=== PATIENT | female | born 1975 | race Caucasian/White ===

== ENCOUNTER 2019-07-25 16:00 | Emergency (ER) | payer BC, OTHER ==
[2019-07-25 16:10] VITALS: BP 159/88; PULSE 87; TEMP 98.9; BMI 29.7
--- NOTE | 2019-07-25 16:10 | PDOC ---
Rapid Medical Evaluation Time Seen by Provider: 07/25/19 16:09 Medical Evaluation: Allergies Allergy/AdvReac Type Severity Reaction Status Date / Time codeine Allergy Intermediate Vomiting Verified 08/02/16 08:00 metoclopramide HCl Allergy Intermediate Rash Verified 08/02/16 08:00 [From Reglan] tramadol Allergy Intermediate Vomiting Verified 08/02/16 08:00 07/25/19 16:10 I have performed a brief in-person evaluation of this patient. The patient presents with a chief complaint of: abd pain Pertinent physical exam findings:stable and in NAD, non-focal I have ordered the following:labs The patient will proceed to the ED for further evaluation.
--- NOTE | 2019-07-25 16:38 | PDOC ---
*Physical Exam - Vital Signs Last Vital Signs Temp Pulse Resp BP Pulse Ox 98.9 F 87 18 159/88 97 07/25/19 16:08 07/25/19 16:08 07/25/19 16:08 07/25/19 16:08 07/25/19 16:08 ED Treatment Course - LABORATORY CBC & Chemistry Diagram: 07/25/19 16:32 07/25/19 16:32 - ADDITIONAL ORDERS Additional order review: Laboratory Results 07/25/19 16:32 Lipase Cancelled Medical Decision Making - Medical Decision Making 07/25/19 16:38 43 yo F presenting with RLQ pain, loose stools, nausea H/o hysterectomy Pt seen by Midlevel Provider under my direct supervision Pt interviewed and examined Ancillary studies reviewed Laboratory Tests 07/25/19 07/25/19 07/25/19 16:32 16:32 16:32 WBC 12.0 H Hgb 13.5 Hct 40.8 Plt Count 332 D BUN 10.4 Creatinine 1.0 Urine HCG, Qual Negative CT demonstrates no appendicitis I agree with plan as outlined by Midlevel Provider 07/25/19 17:04 07/25/19 17:05 Pt signed out pending US to further evaluate right ovary/ovarian cyst Discharge - Discharge Information Problems reviewed: Yes Clinical Impression/Diagnosis: Right ovarian cyst Condition: Stable Disposition: HOME - Follow up/Referral Referrals: ON STAFF,NOT [Primary Care Provider] - - Patient Discharge Instructions Patient Printed Discharge Instructions: DI for Ovarian Cyst Additional Instructions: Thank you for choosing [facility]. It was a pleasure taking care of you. Your lab work was unremarkable Your CT scan showed no evidence of appendicitis Your pelvic ultrasound showed that you had a 3.5x3.5 and 2x1.5 cm cyst in your right ovary You will need to follow-up with your TEXTILE ENGINEER in 3 months for further evaluation You may take Motrin 600 mg every 6 hours as needed for pain. Take with food Return to the Emergency Department if your symptoms worsen or persist, you have fever, shortness of breath, chest pain, severe abdominal pain, vomiting or other concerning symptoms. - Post Discharge Activity
[2019-07-25] MEDS ORDERED: SODIUM CHLORIDE 1,000 ML IV STA (16:40)
[2019-07-25] MEDS ORDERED: morphine CARPU-JECT 4 MG/1 ML DISP.SYRIN IVPUSH ONE (16:40)
[2019-07-25] MEDS ORDERED: ONDANSETRON 4 MG/2 ML VIAL IVPUSH ONE (16:40)
[2019-07-25 16:43] LABS: BASO % 0.9 % (0-2.0); HEMATOCRIT 40.8 % (32.4-45.2); HEMOGLOBIN 13.5 GM/dL (10.7-15.3); LYMPH % 10.5 % (8-40); MCH 31.3 pg (25.7-33.7); MCHC 33.1 g/dl (32.0-36.0); MEAN CELL VOLUME 94.4 fl (80-96); MONO % 6.3 % (3.8-10.2); NEUT % 81.3 % (42.8-82.8); PLATELET COUNT 332 K/MM3 (134-434); RBC 4.32 M/mm3 (3.60-5.2); RDW 13.7 % (11.6-15.6)
[2019-07-25] MEDS ORDERED: LACTATED RINGERS SOLUTION 1000 ML INFUS.BAG IV ONE (16:45)
[2019-07-25] MEDS ORDERED: ONDANSETRON 4 MG/2 ML VIAL ONE (16:45)
[2019-07-25] MEDS ORDERED: morphine SULFATE 4 MG/ML VIAL ONE (16:45)
[2019-07-25 17:04] LABS: BILIRUBIN,TOTAL 0.3 mg/dL (0.2-1); BLOOD UREA NITROGEN 10.4 mg/dL (7-18); CALCIUM 9.8 mg/dL (8.5-10.1); POTASSIUM 4.8 mmol/L (3.5-5.1); TOT PROT 7.3 g/dl (6.4-8.2)
[2019-07-25 17:08] LABS: URINE APPEARANCE CLEAR; URINE BILIRUBIN NEGATIVE (NEGATIVE); URINE COLOR DK YELLOW; URINE GLUCOSE (UA) NEGATIVE (NEGATIVE); URINE KETONE TRACE (NEGATIVE); URINE LEUK ESTERASE NEGATIVE (NEGATIVE); URINE NITRITE NEGATIVE (NEGATIVE); URINE PROTEIN TRACE (NEGATIVE)
--- NOTE | 2019-07-25 17:22 | PDOC ---
History of Present Illness - General Chief Complaint: Pain Stated Complaint: ABD PAIN Time Seen by Provider: 07/25/19 16:09 History Source: Patient Exam Limitations: No Limitations Past History - Past Medical History Allergies/Adverse Reactions: Allergies Allergy/AdvReac Type Severity Reaction Status Date / Time metoclopramide HCl Allergy Intermediate Rash Verified 07/25/19 16:12 [From Reglan] mayonnaise Allergy Verified 07/25/19 16:12 Home Medications: Ambulatory Orders Duloxetine [Cymbalta -] 60 mg PO DAILY 02/25/12 Cyclobenzaprine HCl [Flexeril -] 10 mg PO PRN 07/30/16 Oxycodone HCl/Acetaminophen [Percocet 5-325 mg Tablet -] 1 - 2 tab PO Q6H #20 tablet MDD 8 08/03/16 Omeprazole Magnesium 40 mg PO DAILY 07/25/19 Anemia: No Asthma: No Cancer: No Cardiac Disorders: No CVA: No COPD: No CHF: No Dementia: No Diabetes: No GI Disorders: Yes (ACID REFLUX) Disorders: No HTN: Yes (recently-not treated@present) Hypercholesterolemia: No Liver Disease: No Seizures: No Thyroid Disease: No - Immunization History Td Vaccination: Yes Immunization Up to Date: Yes - Psycho Social/Smoking Cessation Hx Smoking Status: No Smoking History: Current every day smoker Have you smoked in the past 12 months: Yes Number of Cigarettes Smoked Daily: 20 Information on smoking cessation initiated: No 'Breaking Loose' booklet given: 08/02/16 Hx Alcohol Use: No Drug/Substance Use Hx: No Substance Use Type: None *Physical Exam - Vital Signs Last Vital Signs Temp Pulse Resp BP Pulse Ox 98.9 F 87 18 159/88 97 07/25/19 16:08 07/25/19 16:08 07/25/19 16:08 07/25/19 16:08 07/25/19 16:08 - Physical Exam General Appearance: No: Apparent Distress Respiratory/Chest: positive: Lungs Clear, Normal Breath Sounds. negative: Respiratory Distress Cardiovascular: positive: Regular Rhythm, Regular Rate, S1, S2. negative: Murmur Female Pelvic Exam: negative: adnexal tenderness Gastrointestinal/Abdominal: positive: Normal Bowel Sounds, Tender (RLQ), Soft. negative: Distended, Guarding, Rebound Musculoskeletal: negative: CVA Tenderness Neurologic: positive: Alert ED Treatment Course - LABORATORY CBC & Chemistry Diagram: 07/25/19 16:32 07/25/19 16:32 - ADDITIONAL ORDERS Additional order review: Laboratory Results 07/25/19 07/25/19 07/25/19 16:32 16:32 16:32 Sodium Potassium Chloride Carbon Dioxide Anion Gap BUN Creatinine Est GFR (CKD-EPI)AfAm Est GFR (CKD-EPI)NonAf Random Glucose Calcium Total Bilirubin AST ALT Alkaline Phosphatase Total Protein Albumin Lipase Cancelled Urine Color Dk yellow Urine Appearance Clear Urine pH 6.0 Ur Specific [place] 1.024 Urine Protein Trace Urine Glucose (UA) Negative Urine Ketones Trace H Urine Blood Negative Urine Nitrite Negative Urine Bilirubin Negative Urine Urobilinogen 1.0 Ur Leukocyte Esterase Negative Urine HCG, Qual Negative 07/25/19 16:32 Sodium 135 L Potassium 4.8 Chloride 103 Carbon Dioxide 28 Anion Gap 4 L BUN 10.4 Creatinine 1.0 Est GFR (CKD-EPI)AfAm 78.79 Est GFR (CKD-EPI)NonAf 67.98 Random Glucose 135 H Calcium 9.8 Total Bilirubin 0.3 AST 41 H ALT 50 Alkaline Phosphatase 73 Total Protein 7.3 Albumin 4.0 Lipase 205 Urine Color Urine Appearance Urine pH Ur Specific [place] Urine Protein Urine Glucose (UA) Urine Ketones Urine Blood Urine Nitrite Urine Bilirubin Urine Urobilinogen Ur Leukocyte Esterase Urine HCG, Qual 07/25/19 16:32 RBC 4.32 MCV 94.4 MCHC 33.1 RDW 13.7 MPV 9.0 Neutrophils % 81.3 Lymphocytes % 10.5 D Monocytes % 6.3 Eosinophils % 1.0 Basophils % 0.9 - RADIOLOGY Radiology Studies Ordered: Category Date Time Status ABDOMEN & PELVIS CT WITH CONTR [CT] Stat CT Scan 07/25/19 16:42 Ordered - Medications Given in the ED: ED Medications Discontinued Medications Generic Name Dose Route Start Last Admin Trade Name Freq PRN Reason Stop Dose Admin Lactated Ringer's 1,000 ml 07/25/19 16:45 07/25/19 16:59 Lactated Ringers Solution IV 07/25/19 16:46 1,000 ml ONCE ONE Administration Morphine Sulfate 4 mg 07/25/19 16:40 07/25/19 16:59 Morphine Injection - IVPUSH 07/25/19 16:41 4 mg ONCE ONE Administration Ondansetron HCl 4 mg 07/25/19 16:40 07/25/19 16:59 Zofran Injection IVPUSH 07/25/19 16:41 4 mg ONCE ONE Administration Medical Decision Making - Medical Decision Making 43-year-old female [employer] history of hysterectomy and right oophorectomy in July 2016 due to endometriosis, GERD, anxiety, herniated disc presents to the ED with complaint of right lower quadrant abdominal pain from today along with nausea and loose stools. Denies fevers, shortness of breath, chest pain, vomiting, urinary complaints. Denies having this type of pain in the past. Consider appendicitis, kidney stones Plan: labs, IV fluids, pain control, CT abdomen pelvis 07/25/19 17:21 CT abdomen pelvis shows no evidence of acute appendicitis Shows possible nonobstructing 1 mm right kidney stone Also shows a nonspecific 5.7 x 3.7 cm bilobed right adnexal cystic structure We will get pelvic ultrasound to further evaluate this 07/25/19 19:02 Pelvic ultrasound shows 2 separate right ovarian cyst measuring 3.5 x 3.5 cm and 2 x 1.5 cm No evidence of torsion is noted Patient probably had a left oophorectomy done inside of the right Patient feels more comfortable Patient has LICENSED VETERINARY TECHNICIAN doctor with whom she can follow-up in 3 months 07/25/19 20:11 Discharge - Discharge Information Problems reviewed: Yes Clinical Impression/Diagnosis: Right ovarian cyst Condition: Stable Disposition: HOME - Admission No - Additional Discharge Information Prescription Drug Monitoring Program (I-STOP) results: I-STOP not reviewed - Follow up/Referral Referrals: ON STAFF,NOT [Primary Care Provider] - - Patient Discharge Instructions Patient Printed Discharge Instructions: DI for Ovarian Cyst Additional Instructions: Thank you for choosing [facility]. It was a pleasure taking care of you. Your lab work was unremarkable Your CT scan showed no evidence of appendicitis Your pelvic ultrasound showed that you had a 3.5x3.5 and 2x1.5 cm cyst in your right ovary You will need to follow-up with your SLIP SEAT COVERER in 3 months for further evaluation You may take Motrin 600 mg every 6 hours as needed for pain. Take with food Return to the Emergency Department if your symptoms worsen or persist, you have fever, shortness of breath, chest pain, severe abdominal pain, vomiting or other concerning symptoms. - Post Discharge Activity
[2019-07-25 17:29] LABS: INR 0.98 (0.83-1.09); PROTHROMBIN TIME (PATIENT) 11.6 SEC (9.7-13.0)
== END 2019-07-25 20:31 | disposition home or self-care (01) ==
LOC: JER 16:00
PROC: 3E0337Z Introduction of Electrolytic and Water Balance Substance into Peripheral Vein, Percutaneous Approach (ICD-10-PCS; principal; 2019-07-25)
PROC: 3E033NZ Introduction of Analgesics, Hypnotics, Sedatives into Peripheral Vein, Percutaneous Approach (ICD-10-PCS; 2019-07-25)
PROC: 3E033GC Introduction of Other Therapeutic Substance into Peripheral Vein, Percutaneous Approach (ICD-10-PCS; 2019-07-25)
DX: N83.201 Unspecified ovarian cyst, right side (principal); Z88.8 Allergy status to other drugs, medicaments and biological substances; Z91.011 Allergy to milk products; K21.9 Gastro-esophageal reflux disease without esophagitis; N80.9 Endometriosis, unspecified; F41.9 Anxiety disorder, unspecified; I10 Essential (primary) hypertension
CPT/HCPCS: 36415; 74177-TC; 76830-TC; 80053; 81003; 83690; 84703; 85025; 85610; 85730; 86850; 86900; 86901; 87086; 99283-25